=== PATIENT | male | born 1995 | race Caucasian/White ===

== ENCOUNTER 2022-04-11 22:13 | Emergency (ER) | payer OTHER, MEDICAID ==
[~2022-04-11] VITALS: Ht 167.6 cm; Wt 97.3 kg
[~2022-04-11 22:13] MED LIST: DULO-113 PO; RISP0.5T39 PO
[2022-04-11] MEDS ORDERED: BACITRACIN 28 GM OINTMENT TP ONE (22:45)
[2022-04-11] MEDS ORDERED: PERTUSS(ACELL),DIPH,TET VAC/PF 0.5 ML SYRINGE IM. ONE (22:45)
[2022-04-11] MEDS ORDERED: AMOX TR/POT CLAV 875 MG/125 MG TABLET PO ONE (22:45)
[2022-04-11 23:27] VITALS: BP 125/85
[2022-04-11] MEDS ORDERED: AMOX1TAB16 PO (23:31)
== END 2022-04-11 23:38 | disposition home or self-care (01) ==
LOC: EMS 22:13
DX: S01.81XA Laceration without foreign body of other part of head, initial encounter (principal); Z79.899 Other long term (current) drug therapy; Y04.1XXA Assault by human bite, initial encounter; Y93.89 Activity, other specified; Y92.89 Other specified places as the place of occurrence of the external cause; Y99.8 Other external cause status
CPT/HCPCS: 12013; 90471; 90715; 99283